=== PATIENT | male | born 1985 | race African-American/Black ===

== ENCOUNTER 2020-02-21 10:30 | Emergency (ER) | payer OTHER ==
[~2020-02-21] VITALS: Ht 180.3 cm; Wt 81.7 kg
[2020-02-21 11:11] LABS: ABSOLUTE NEUTROPHILS 8.7 thou/uL (1.4-8.2); BASOPHILS 0.5 % (0.0-2.0); EOSINOPHILS 0.2 % (0.0-3.0); HEMATOCRIT 39.8 % (42.0-52.0); MCHC 32.7 g/dL (28.0-37.0); MCV 85.6 fL (80.0-100.0); MONOCYTES 7.3 % (1.0-8.0); PLATELET COUNT 242 thou/uL (150-400); RBC 4.65 mil/uL (4.50-6.00); WBC 11.6 thou/uL (4.0-11.0)
[2020-02-21 11:25] LABS: CALCIUM 9.2 mg/dL (8.5-10.1); POTASSIUM 3.1 mmol/L (3.5-5.1)
[2020-02-21 11:31] LABS: ALBUMIN 4.1 g/dL (3.4-5.0); TOTAL BILIRUBIN 1.1 mg/dL (<0.1-1.0); TOTAL PROTEIN 7.5 g/dL (6.4-8.2)
[2020-02-21 11:34] LABS: URINE BILIRUBIN NEGATIVE (Negative); URINE BLOOD 3+ (Negative); URINE CLARITY CLOUDY; URINE COLOR YELLOW; URINE GLUCOSE-RANDOM* NEGATIVE (Negative); URINE KETONES NEGATIVE (Negative); URINE LEUKOCYTES-REFLEX TRACE (Negative); URINE NITRITE-REFLEX NEGATIVE (Negative); URINE PROTEIN (DIPSTICK) 1+ (Negative); URINE SPECIFIC GRAVITY >= 1.030 (1.005-1.035); URINE UROBILINOGEN 0.2 E.U./dl (0.2-1.0)
[2020-02-21 11:49] LABS: CASTS None Seen /LPF (None Seen); SQUAMOUS 0-3 Few /LPF (0-3)
[2020-02-21 11:50] LABS: CALCIUM OXALATE 0-3 Few /LPF (None Seen)
[2020-02-21 13:14] VITALS: BP 125/74
[2020-02-21] MEDS ORDERED: KEFLEX500 M1 PO (13:16)
[2020-02-21] MEDS ORDERED: NORCO 5-325 TA1 EAC1 PO (13:16)
== END 2020-02-21 13:21 | disposition home or self-care (01) ==
LOC: ER 10:30
PROVIDERS: Emergency Medicine
DX: N13.2 Hydronephrosis with renal and ureteral calculous obstruction (principal); N39.0 Urinary tract infection, site not specified; R11.10 Vomiting, unspecified; Z91.013 Allergy to seafood